=== PATIENT | female | born 1985 | race Caucasian/White ===

== ENCOUNTER 2022-10-07 07:42 | Outpatient (CLI) | payer BC | END 2022-10-07 07:43 | disposition home or self-care (01) | LOC: CSHMAMMO 07:42 | PROVIDERS: ATTEND Obstetrics & Gynecology | DX: N64.4 Mastodynia (principal); Z91.89 Other specified personal risk factors, not elsewhere classified; Z98.82 Breast implant status | CPT/HCPCS: 77066; G0279 ==

== ENCOUNTER 2023-06-06 15:05 | Outpatient (CLI) | payer BC ==
[~2023-06-06 15:05] MED LIST: Magnevist 469MG/ML 20 ML VIAL ONE
== END 2023-06-06 15:06 | disposition home or self-care (01) ==
LOC: CSHMRI 15:05
PROVIDERS: ATTEND Psychiatry & Neurology Neurology
DX: R51.9 Headache, unspecified (principal)
CPT/HCPCS: 70553